=== PATIENT | male | born 1995 | race Caucasian/White ===

== ENCOUNTER 2016-06-25 14:16 | Emergency (ER) | payer BC ==
[~2016-06-25] VITALS: Ht 193 cm; Wt 94.3 kg
[2016-06-25 14:55] LABS: ABSOLUTE NEUTROPHILS 3.5 thou/uL (1.4-8.2); BASOPHILS 0.5 % (0.0-2.0); EOSINOPHILS 9.8 % (0.0-3.0); HEMATOCRIT 42.7 % (42.0-52.0); HEMOGLOBIN 14.9 gm/dL (14.0-18.0); LYMPHOCYTES 37.9 % (24.0-44.0); MCH 30.6 pg (26.0-34.0); MCV 87.6 fL (80.0-100.0); MONOCYTES 9.1 % (1.0-8.0); PLATELET COUNT 175 thou/uL (150-400); POLYS 42.7 % (36.0-66.0); RBC 4.87 mil/uL (4.50-6.00); WBC 8.1 thou/uL (4.0-11.0)
[2016-06-25 14:56] LABS: MANUAL DIFF NO
[2016-06-25 15:08] LABS: CALCIUM 8.8 mg/dL (8.5-10.1); CREATININE 1.1 mg/dL (0.6-1.3)
[2016-06-25 15:10] LABS: APTT 26.8 Seconds (24.5-32.8); INR 1.1; PROTIME 11.4 Seconds (9.3-11.4)
[2016-06-25 15:13] LABS: ALBUMIN 4.2 g/dL (3.4-5.0); TOTAL BILIRUBIN 1.2 mg/dL (<0.1-1.0); TOTAL PROTEIN 7.9 g/dL (6.4-8.2)
[2016-06-25 16:12] VITALS: BP 120/80
== END 2016-06-25 16:14 | disposition home or self-care (01) ==
LOC: ER 14:16
PROVIDERS: Emergency Medicine
DX: S30.1XXA Contusion of abdominal wall, initial encounter (principal); X58.XXXA Exposure to other specified factors, initial encounter; Y93.9 Activity, unspecified; Y92.9 Unspecified place or not applicable; Y99.9 Unspecified external cause status